=== PATIENT | female | born 1930 | race Caucasian/White ===

== ENCOUNTER 2020-02-24 08:14 | Inpatient (IN) | payer MEDICARE, OTHER ==
[~2020-02-24] VITALS: Ht 142.2 cm; Wt 51.5 kg
[~2020-02-24 08:14] MED LIST: ASPI-515 PO; CALC-500 PO; CHOL2000 PO; DOXA2TAB9 PO; GLUC1CAP48 PO; HYDR-3237 PO; LORA-445 PO; PANT40TA5 PO; RANI300T PO; SPIR25TA5 PO; VALS320T2 PO; VIT1CAPS42 PO
--- NOTE | 2020-02-24 08:28 | NUR ---
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
[2020-02-24 10:15] LABS: BASOPHILS # (AUTO) 0.02 x10^3/uL (0-0.1); BASOPHILS % (AUTO) 0 % (0-1); EOSINOPHILS % (AUTO) 1 % (1-7); LYMPHOCYTES # (AUTO) 0.92 x10^3/uL (1-3.4); LYMPHOCYTES % (AUTO) 13 % (22-44); MD NO; MEAN CORPUSCULAR HEMOGLOBIN 29.3 pg (27.0-34.8); MEAN CORPUSCULAR HGB CONC 32.7 g/dL (32.4-35.8); MEAN CORPUSCULAR VOLUME 89.6 fL (80-100); MEAN PLATELET VOLUME 7.8 fL (7.4-10.4); MONOCYTES # (AUTO) 0.73 x10^3/uL (0.2-0.8); MONOCYTES % (AUTO) 10 % (2-9); NEUTROPHILS # (AUTO) 5.58 x10^3/uL (1.8-6.8); NEUTROPHILS % (AUTO) 76 % (42-75); PLATELET COUNT 181 x10^3/uL (130-400); RED BLOOD COUNT 3.85 x10^6/uL (3.82-5.3); RED CELL DISTRIBUTION WIDTH 13.3 % (9.6-15.2)
[2020-02-24 10:23] LABS: ALBUMIN 3.2 g/dL (3.4-5.0); ANION GAP 5 mmol/L (5-15); CALCIUM 9.5 mg/dL (8.5-10.1); CHLORIDE 114 mmol/L (98-107)
[2020-02-24 10:37] LABS: ALANINE AMINOTRANSFERASE 25 U/L (12-78); ALKALINE PHOSPHATASE 100 U/L (45-117); BILIRUBIN,TOTAL 0.9 mg/dL (0.2-1.0); CREATININE 0.85 mg/dL (0.55-1.02); TOTAL PROTEIN 6.7 g/dL (6.4-8.2)
[2020-02-24] MEDS ORDERED: FUROSEMIDE 20 MG TABLET ONE (11:14)
--- NOTE | 2020-02-24 11:20 | NUR ---
CHENQ SENT TO PHARMACY FOR MEDS
[2020-02-24] MEDS ORDERED: FUROSEMIDE 20 MG TABLET PO ONE (11:30)
[2020-02-24] MEDS ORDERED: VALSARTAN 320 MG TABLET PO ONE (11:30)
[2020-02-24] MEDS ORDERED: DOXAZOSIN 2MG TABLET PO ONE (11:30)
--- NOTE | 2020-02-24 12:22 | NUR ---
PT REQUESTING TO TALK TO MD BEFORE DC ABOUT ADDITIONAL COMPLAINTS, MD NOTIFIED
[2020-02-24] MEDS ORDERED: SODIUM CHLORIDE FLUSH 10ML SYR IVF ONE (13:00)
--- NOTE | 2020-02-24 13:01 | NUR ---
PT TO CT. PT TO BE ADMITTED ABOUT DISCUSSING NEW INFORMATION WITH
[2020-02-24] MEDS ORDERED: ENALAPRILAT 1.25 MG/ML, 2ML IVPush PRN (14:00)
[2020-02-24] MEDS: ENOXAPARIN 40 MG/0.4 ML SQ SCH (14:00)
[2020-02-24] MEDS ORDERED: DOCUSATE 100 MG CAPSULE PO PRN (14:00)
[2020-02-24] MEDS ORDERED: HYDROcodone/APAP 5/325 TABLET PO PRN (14:00)
[2020-02-24] MEDS ORDERED: POLYETHYLENE GLYCOL 17 GM PACKET PO PRN (14:00)
[2020-02-24] MEDS ORDERED: hydrALAzine 20 MG/ML, 1ML IVPush PRN (14:00)
[2020-02-24] MEDS: FUROSEMIDE 20 MG TABLET PO SCH (16:23)
[2020-02-24 16:26] VITALS: BP 155/93
[2020-02-24 20:04] VITALS: BP 127/79
[2020-02-24] MEDS: ACETAMINOPHEN 325 MG TABLET PO PRN (20:35)
[2020-02-24] MEDS ORDERED: DOXAZOSIN 2MG TABLET PO SCH (21:00)
[2020-02-25 02:22] VITALS: BP 166/75
[2020-02-25 06:00] LABS: ANION GAP 8 mmol/L (5-15); CALCIUM 8.7 mg/dL (8.5-10.1); CHLORIDE 108 mmol/L (98-107)
[2020-02-25 06:28] LABS: CREATININE 0.88 mg/dL (0.55-1.02)
[2020-02-25 07:27] VITALS: BP_SYST 171; BP_SYST 172; BP_DIAS 75
[2020-02-25] MEDS ORDERED: POTASSIUM CHLORIDE 20 MEQ TAB.ER.PRT PO ONE (08:30)
[2020-02-25] MEDS: PANTOPRAZOLE 40MG TABLET PO SCH (08:38)
[2020-02-25] MEDS: FUROSEMIDE 20 MG TABLET PO SCH (08:38)
[2020-02-25] MEDS: VALSARTAN 320 MG TABLET PO SCH (08:38)
[2020-02-25] MEDS: ENOXAPARIN 40 MG/0.4 ML SQ SCH (13:01)
[2020-02-25 15:59] VITALS: BP 110/72
[2020-02-25 18:43] VITALS: BP 149/89
[2020-02-25] MEDS: ACETAMINOPHEN 325 MG TABLET PO PRN (20:25)
[2020-02-25] MEDS: DOXAZOSIN 2MG TABLET PO SCH (20:25)
[2020-02-26 01:04] VITALS: BP_SYST 138; BP_SYST 150; BP_DIAS 68; BP_DIAS 75
[2020-02-26 06:46] VITALS: BP 177/84
[2020-02-26] MEDS: VALSARTAN 320 MG TABLET PO SCH (07:35)
[2020-02-26] MEDS: DOXAZOSIN 2MG TABLET PO SCH ×2 (07:37→19:28)
[2020-02-26] MEDS: PANTOPRAZOLE 40MG TABLET PO SCH (07:37)
[2020-02-26] MEDS: ACETAMINOPHEN 325 MG TABLET PO PRN ×3 (07:40→19:28)
[2020-02-26 08:28] VITALS: BP 158/85
[2020-02-26] MEDS: FUROSEMIDE 20 MG TABLET PO SCH (09:56)
[2020-02-26] MEDS ORDERED: POTASSIUM CHLORIDE 20 MEQ TAB.ER.PRT PO ONE (10:30)
[2020-02-26] MEDS ORDERED: FURO-93 PO (10:30)
[2020-02-26 12:11] VITALS: BP 125/81
[2020-02-26] MEDS: ENOXAPARIN 30 MG/0.3 ML SQ SCH (14:00)
[2020-02-26 18:29] VITALS: BP 125/84
[2020-02-27 00:07] VITALS: BP 150/76
[2020-02-27 07:43] VITALS: BP 169/104
[2020-02-27] MEDS: PANTOPRAZOLE 40MG TABLET PO SCH (08:00)
[2020-02-27] MEDS: DOXAZOSIN 2MG TABLET PO SCH ×2 (08:01→20:33)
[2020-02-27] MEDS: VALSARTAN 320 MG TABLET PO SCH (08:01)
[2020-02-27 12:26] VITALS: BP 142/83
[2020-02-27] MEDS: ENOXAPARIN 30 MG/0.3 ML SQ SCH (14:56)
[2020-02-27 17:33] VITALS: BP 109/65
[2020-02-27 19:02] VITALS: BP 135/82
[2020-02-27 19:35] LABS: MICROSCOPIC NOT IND
[2020-02-27] MEDS: ACETAMINOPHEN 325 MG TABLET PO PRN (20:31)
[2020-02-28 00:26] VITALS: BP 170/82
[2020-02-28 00:35] VITALS: BP 148/76
[2020-02-28 05:49] LABS: ANION GAP 4 mmol/L (5-15); CALCIUM 8.9 mg/dL (8.5-10.1); CHLORIDE 112 mmol/L (98-107); CREATININE 0.58 mg/dL (0.55-1.02)
[2020-02-28 07:01] VITALS: BP 190/79
[2020-02-28] MEDS: DOXAZOSIN 2MG TABLET PO SCH ×2 (08:08→19:44)
[2020-02-28] MEDS: VALSARTAN 320 MG TABLET PO SCH (08:08)
[2020-02-28] MEDS: PANTOPRAZOLE 40MG TABLET PO SCH (08:08)
[2020-02-28] MEDS: ACETAMINOPHEN 325 MG TABLET PO PRN ×2 (10:42→19:44)
[2020-02-28] MEDS: ENOXAPARIN 30 MG/0.3 ML SQ SCH (14:00)
[2020-02-28 14:09] VITALS: BP 113/78
[2020-02-28 19:02] VITALS: BP 116/73
[2020-02-29 00:22] VITALS: BP 155/89
[2020-02-29 06:08] LABS: ANION GAP 3 mmol/L (5-15); CALCIUM 9.3 mg/dL (8.5-10.1); CHLORIDE 109 mmol/L (98-107); CREATININE 0.75 mg/dL (0.55-1.02)
[2020-02-29 06:54] VITALS: BP 174/91
[2020-02-29] MEDS: VALSARTAN 320 MG TABLET PO SCH (08:16)
[2020-02-29] MEDS: PANTOPRAZOLE 40MG TABLET PO SCH (08:16)
[2020-02-29] MEDS: DOXAZOSIN 2MG TABLET PO SCH (08:17)
[2020-02-29] MEDS: ACETAMINOPHEN 325 MG TABLET PO PRN (10:38)
[2020-02-29 13:31] VITALS: BP 123/76
[2020-02-29] MEDS: ENOXAPARIN 30 MG/0.3 ML SQ SCH (13:54)
== END 2020-02-29 16:08 | disposition home health service (06) | DRG 303 ==
LOC: ED 13:04 → EDIP 13:55 → 3N 14:20
PROVIDERS: ADMIT Family Medicine; ATTEND Family Medicine
DX: I87.8 Other specified disorders of veins (principal); E87.6 Hypokalemia; F03.90 Unspecified dementia, unspecified severity, without behavioral disturbance, psychotic disturbance, mood disturbance, and anxiety; I10 Essential (primary) hypertension; R29.6 Repeated falls; E11.9 Type 2 diabetes mellitus without complications; F41.1 Generalized anxiety disorder; M79.7 Fibromyalgia; R62.7 Adult failure to thrive; C76.2 Malignant neoplasm of abdomen; K21.9 Gastro-esophageal reflux disease without esophagitis; K59.00 Constipation, unspecified; M79.89 Other specified soft tissue disorders; Z75.1 Person awaiting admission to adequate facility elsewhere; Z85.72 Personal history of non-Hodgkin lymphomas; Z79.82 Long term (current) use of aspirin; Z79.899 Other long term (current) drug therapy; Z88.8 Allergy status to other drugs, medicaments and biological substances; Z88.1 Allergy status to other antibiotic agents; Z68.25 Body mass index [BMI] 25.0-25.9, adult; Z83.3 Family history of diabetes mellitus
CPT/HCPCS: 36415; 70450; 74018; 80048; 80053; 81003; 82607; 83880; 84443; 85025; 93005; 93306; 93970; G0378; J1650